=== PATIENT | male | born 1960 | race Caucasian/White ===

== ENCOUNTER 2020-08-29 21:20 | Emergency (ER) | payer MEDICAID, MEDICARE ==
[~2020-08-29] VITALS: Ht 182.9 cm; Wt 84.1 kg
[~2020-08-29 21:20] MED LIST: ASPI-1264 PO; ATOR40TA7 PO; BISO5TAB PO; HYDR-4353 PO; LISI-600 PO; LOP25T PO; PANT40TA39 PO
[2020-08-29 22:13] VITALS: BP 154/97
== END 2020-08-29 23:37 | disposition home or self-care (01) ==
LOC: ER 21:20
DX: U07.1 COVID-19 (principal); I10 Essential (primary) hypertension; I25.10 Atherosclerotic heart disease of native coronary artery without angina pectoris; G89.29 Other chronic pain; M54.9 Dorsalgia, unspecified; Z88.8 Allergy status to other drugs, medicaments and biological substances; Z79.82 Long term (current) use of aspirin; Z79.899 Other long term (current) drug therapy
CPT/HCPCS: 99282

== ENCOUNTER 2021-07-30 10:19 | Day surgery (SDC) | payer MEDICARE ==
[2021-07-29 12:21] LABS: BASOPHILS % (AUTO) 0.6 % (0-1); EOSINOPHILS # (AUTO) 0.1 X10'3 (0-0.9); EOSINOPHILS % (AUTO) 1.1 % (0-6); LYMPHOCYTES # (AUTO) 1.2 X10'3 (1.1-4.8); LYMPHOCYTES % (AUTO) 17.6 % (21-51); MEAN CORPUSCULAR HEMOGLOBIN 30.4 PG (27.0-31.0); MEAN CORPUSCULAR HGB CONC 33.6 g/dL (33.0-36.5); MEAN CORPUSCULAR VOLUME 90.3 FL (78-98); MEAN PLATELET VOLUME 8.3 FL (7.4-10.4); MONOCYTES # (AUTO) 0.6 X10'3 (0-0.9); MONOCYTES % (AUTO) 8.2 % (2-12); NEUTROPHILS # (AUTO) 5.1 X10'3 (1.8-7.7); NEUTROPHILS % (AUTO) 72.5 % (42-75); PRE OP HEMATOCRIT 37.9 % (42.0-52.0); PRE OP HEMOGLOBIN 12.7 g/dL (14.0-17.9); PRE OP PLATELET COUNT 284 X10'3 (140-440); RED BLOOD COUNT 4.19 X10'6 (4.70-6.10); RED CELL DISTRIBUTION WIDTH 12.9 % (11.5-14.5)
[2021-07-29 12:37] LABS: ALBUMIN 3.7 G/DL (3.4-5.0); ALBUMIN/GLOBULIN RATIO 0.8 (1.1-1.5); ALKALINE PHOSPHATASE 61 IU/L (46-116); BLOOD UREA NITROGEN 20 MG/DL (7-18); BUN/CREATININE RATIO 18.9 (5.4-32.0); CHLORIDE 105 MMOL/L (99-107); CREATININE 1.06 MG/DL (0.60-1.10); PRE OP ALT 30 U/L (30-65); PRE OP ANION GAP 8 (8-16); PRE OP AST 19 U/L (10-37); PRE OP GLUCOSE 117 MG/DL (70-104); PRE OP POTASSIUM 5.4 MMOL/L (3.4-5.1); PRE OP SODIUM 139 MMOL/L (135-145); TOTAL CARBON DIOXIDE 25.9 MMOL/L (24-32); TOTAL PROTEIN 8.1 G/DL (6.4-8.2); eGFR 71 ML/MIN
[2021-07-30] VITALS (8 sets, daily range): BP systolic 124–155; BP diastolic 71–93
[~2021-07-30] VITALS: Ht 182.9 cm; Wt 82.6 kg
[~2021-07-30 10:19] MED LIST changes: +DOCUMENT DATE & TIME OF BETA-BLOCKER PO ONE; +GABA-530 PO; -LISI-600 PO; -LOP25T PO; -PANT40TA39 PO; +TRAM50TA2 PO; +ceFAZolin 2gm in dextrose, iso 50 ML IV ONE; +famotidine 20mg tablet PO ONE; +metoclopramide 5 mg/ml inj IV ONE; +ringers solution, lacted 1,000 ML IV SCH; +vancomycin 1,500 MG in NS 300ml IV soln IV ONE
[2021-07-30 12:33] LABS: ALANINE AMINOTRANSFERASE 29 U/L (12-78); ALBUMIN 3.7 G/DL (3.4-5.0); ALBUMIN/GLOBULIN RATIO 0.9 (1.1-1.5); ALKALINE PHOSPHATASE 69 IU/L (46-116); ANION GAP 8 (8-16); ASPARTATE AMINO TRANSFERASE 18 U/L (10-37); BLOOD UREA NITROGEN 19 MG/DL (7-18); BUN/CREATININE RATIO 17.3 (5.4-32.0); CALCIUM 9.1 MG/DL (8.5-10.1); CHLORIDE 103 MMOL/L (99-107); GLUCOSE 110 MG/DL (70-104); POTASSIUM 4.9 MMOL/L (3.5-5.1); SODIUM 137 MMOL/L (135-145); TOTAL PROTEIN 7.8 G/DL (6.4-8.2); eGFR 68 ML/MIN
[2021-07-30] MEDS: morphine 4 MG/ML inj SYRINge IV PRN ×2 (14:05→16:45)
[2021-07-30] MEDS ORDERED: fentaNYL/PF 50MCG/1 ML 2ML syringe ONE (14:37)
[2021-07-30] MEDS ORDERED: midazolam 1 mg/ML 2ml injection ONE (14:38)
[2021-07-30] MEDS ORDERED: propofol inj 20 ML IV ONE (15:01)
[2021-07-30] MEDS ORDERED: ROPIVAcaine 0.5% (5mg/ml) 30ml vial ONE (15:01)
[2021-07-30] MEDS ORDERED: ondansetron/PF 4mg/2ml inj ONE (15:01)
[2021-07-30] MEDS ORDERED: dexamethasone sod phosphate 4mg/ml inj. ONE (15:01)
[2021-07-30] MEDS ORDERED: LIDOcaine 2% (20mg/ml) 5ml vial ONE (15:01)
[2021-07-30] MEDS ORDERED: LIDOcaine 1%/PF 5ML 10 MG/ML VIAL ONE (15:01)
[2021-07-30] MEDS ORDERED: ketorolac trometh. 30mg/ml inj. ONE (16:13)
[2021-07-30] MEDS ORDERED: morphine 10mg/ml inj. ONE (16:13)
--- NOTE | 2021-07-30 16:33 | NUR ---
ASSUME CARE PT AWAKE ALERT VSS NO DISTRESS C/O PAIN TO LEFT KNEE VESTA WRAP DRESSING CDI WITH VESTA BRACE IN PLACE ELEVATED AND ICED +CMS TO LEFT FOOT IV RIGHT AC 20G PATIENT CONT TO MONITOR Addendum: 07/30/21 at 1703 by Griselda Panda RN Amended: Links added.
[2021-07-30] MEDS ORDERED: morphine 2 MG/ML inj. syringe IV PRN (16:40)
[2021-07-30] MEDS ORDERED: hydrALAZINE 20mg/ml inj. IV PRN (16:40)
[2021-07-30] MEDS ORDERED: HYDROmorphone/PF 0.2 MG/ML SYRINGE IV PRN ×2 (16:40)
[2021-07-30] MEDS ORDERED: labetalol 20mg/4ml (5mg/ml) syringe IV PRN (16:40)
[2021-07-30] MEDS ORDERED: ringers solution, lacted 1,000 ML IV SCH (16:40)
[2021-07-30] MEDS ORDERED: morphine 4 MG/ML inj SYRINge IV PRN (16:40)
[2021-07-30] MEDS ORDERED: meperidine/PF 25mg/ml syringe IV PRN (16:40)
[2021-07-30] MEDS ORDERED: acetaminophen 1,000mg/100ml IV 100 ML IV PRN (16:40)
[2021-07-30] MEDS ORDERED: ondansetron/PF 4mg/2ml inj IV PRN (16:40)
[2021-07-30] MEDS ORDERED: proCHLORperazine 10 MG/2 ml inj IV PRN (16:40)
--- NOTE | 2021-07-30 17:27 | NUR ---
PT STATES FEELING BETTER VSS NO DISTRESS JENNA POS MEETS CRITERIA TO GO HOME DC INSTR GIVEN RIDE CALLED Addendum: 07/30/21 at 1728 by Griselda Pnada RN Amended: Links added.
== END 2021-07-30 17:43 | disposition home or self-care (01) ==
LOC: PAS 10:19
PROVIDERS: ATTEND Orthopaedic Surgery
DX: S82.142A Displaced bicondylar fracture of left tibia, initial encounter for closed fracture (principal); G89.18 Other acute postprocedural pain; I10 Essential (primary) hypertension; I25.2 Old myocardial infarction; I25.10 Atherosclerotic heart disease of native coronary artery without angina pectoris; Z20.822 Contact with and (suspected) exposure to COVID-19; Z87.891 Personal history of nicotine dependence; Z72.89 Other problems related to lifestyle; Z95.1 Presence of aortocoronary bypass graft; Z95.5 Presence of coronary angioplasty implant and graft; Z98.890 Other specified postprocedural states; Z79.899 Other long term (current) drug therapy; Z79.82 Long term (current) use of aspirin; Z88.8 Allergy status to other drugs, medicaments and biological substances; V19.9XXA Pedal cyclist (driver) (passenger) injured in unspecified traffic accident, initial encounter; Y93.55 Activity, bike riding; Y92.89 Other specified places as the place of occurrence of the external cause; Y99.8 Other external cause status
CPT/HCPCS: 27536; 36415; 64447; 73590; 76000; 76942; 80053; 82948; 85025; 86885; 86900; 86901; 87635; 93005; A6222; C1713; C9803; J0131; J1100; J1170; J1885; J2001; J2175; J2250; J2270; J2405; J2704; J2765; J3010; J3370; J7040; J7120; Z7506; Z7508; Z7512; A4618; A6449; A7000; J2795

== ENCOUNTER 2021-12-24 08:12 | Day surgery (SDC) | payer MEDICARE ==
[2021-12-19 11:13] LABS: BASOPHILS % (AUTO) 0.5 % (0-1); EOSINOPHILS # (AUTO) 0.1 X10'3 (0-0.9); EOSINOPHILS % (AUTO) 2.2 % (0-6); LYMPHOCYTES % (AUTO) 37.3 % (21-51); MEAN CORPUSCULAR HEMOGLOBIN 28.8 PG (27.0-31.0); MEAN CORPUSCULAR HGB CONC 32.9 g/dL (33.0-36.5); MEAN CORPUSCULAR VOLUME 87.6 FL (78-98); MEAN PLATELET VOLUME 9.1 FL (7.4-10.4); MONOCYTES # (AUTO) 0.5 X10'3 (0-0.9); MONOCYTES % (AUTO) 9.6 % (2-12); NEUTROPHILS # (AUTO) 2.7 X10'3 (1.8-7.7); NEUTROPHILS % (AUTO) 50.4 % (42-75); PRE OP HEMATOCRIT 43.2 % (42.0-52.0); PRE OP HEMOGLOBIN 14.2 g/dL (14.0-17.9); PRE OP PLATELET COUNT 212 X10'3 (140-440); RED BLOOD COUNT 4.93 X10'6 (4.70-6.10); RED CELL DISTRIBUTION WIDTH 14.6 % (11.5-14.5)
[2021-12-19 11:32] LABS: ALBUMIN 4.2 G/DL (3.4-5.0); ALBUMIN/GLOBULIN RATIO 1.1 (1.1-1.5); ALKALINE PHOSPHATASE 79 IU/L (46-116); BLOOD UREA NITROGEN 13 MG/DL (7-18); BUN/CREATININE RATIO 14.3 (5.4-32.0); CALCIUM 8.8 MG/DL (8.5-10.1); CHLORIDE 108 MMOL/L (99-107); CREATININE 0.91 MG/DL (0.60-1.10); PRE OP ALT 32 U/L (30-65); PRE OP ANION GAP 10 (8-16); PRE OP AST 24 U/L (10-37); PRE OP BILIRUB, TOTAL 0.8 MG/DL (0.0-1.0); PRE OP GLUCOSE 108 MG/DL (70-104); PRE OP POTASSIUM 4.9 MMOL/L (3.4-5.1); PRE OP SODIUM 144 MMOL/L (135-145); TOTAL CARBON DIOXIDE 26.4 MMOL/L (24-32); TOTAL PROTEIN 8.1 G/DL (6.4-8.2); eGFR 85 ML/MIN
[2021-12-24] VITALS (8 sets, daily range): BP systolic 132–160; BP diastolic 75–98
[~2021-12-24] VITALS: Ht 182.9 cm; Wt 83.9 kg
[2021-12-24] MEDS: acetaminophen 325mg tablet PO ONE ×2 (05:30→09:39)
[~2021-12-24 08:12] MED LIST changes: -ASPI-1264 PO; -GABA-530 PO; +GABA300C PO; +LISI20TA28 PO; -TRAM50TA2 PO; -ceFAZolin 2gm in dextrose, iso 50 ML IV ONE; +cefazolin/dext.iso 2gm/50ml IV ONE; +celeCOXIB 100mg capsule PO ONE; +gabapentin 300mg capsule PO ONE; +oxyCODONE SR 10mg (sust. release) tab -2 tabs (20mg) PO ONE; +tranexamic acid inj. 1,000 MG in 0.7% saline 100 ML PMX IV ONE
[2021-12-24] MEDS ORDERED: FENTANYL CITRATE/PF 50 MCG/1 ML VIAL ONE (12:00)
[2021-12-24] MEDS ORDERED: propofol inj 20 ML IV ONE (12:03)
[2021-12-24] MEDS ORDERED: LIDOcaine 2% (20mg/ml) 5ml vial ONE (12:03)
[2021-12-24] MEDS ORDERED: dexamethasone sod phosphate 4mg/ml inj. ONE (12:04)
[2021-12-24] MEDS ORDERED: ondansetron/PF 4mg/2ml inj ONE (12:04)
[2021-12-24] MEDS ORDERED: fentaNYL/PF 50MCG/1 ML 2ML syringe IV PRN ×2 (12:15)
[2021-12-24] MEDS ORDERED: hydrALAZINE 20mg/ml inj. IV PRN (12:15)
[2021-12-24] MEDS ORDERED: morphine 4 MG/ML inj SYRINge IV PRN (12:15)
[2021-12-24] MEDS ORDERED: labetalol 20mg/4ml (5mg/ml) syringe IV PRN (12:15)
[2021-12-24] MEDS ORDERED: ringers solution, lacted 1,000 ML IV SCH (12:15)
[2021-12-24] MEDS ORDERED: ondansetron/PF 4mg/2ml inj IV PRN (12:15)
[2021-12-24] MEDS ORDERED: morphine 2 MG/ML inj. syringe IV PRN (12:15)
--- NOTE | 2021-12-24 12:46 | NUR ---
Received from OR via , accompanied by Anesthesiologist DR CASH and report given by Anesthesiolgist.AWAKENS TO VOICE. VITALS STABLE. DRESSING DI. DMITRIY PAIN.
--- NOTE | 2021-12-24 14:06 | NUR ---
AWAKE AND ORIENTED. VITALS STABLE. DRESSING DI. DMITRIY PAIN. HOME WITH HIS AT THIS TIME.
== END 2021-12-24 14:06 | disposition home or self-care (01) ==
LOC: PAS 08:12
PROVIDERS: ATTEND Orthopaedic Surgery
DX: T84.84XA Pain due to internal orthopedic prosthetic devices, implants and grafts, initial encounter (principal); I25.10 Atherosclerotic heart disease of native coronary artery without angina pectoris; I10 Essential (primary) hypertension; I25.2 Old myocardial infarction; M19.90 Unspecified osteoarthritis, unspecified site; G89.18 Other acute postprocedural pain; G89.29 Other chronic pain; Z79.01 Long term (current) use of anticoagulants; Z20.822 Contact with and (suspected) exposure to COVID-19; Z79.82 Long term (current) use of aspirin; Z79.899 Other long term (current) drug therapy; Z95.1 Presence of aortocoronary bypass graft; Z88.8 Allergy status to other drugs, medicaments and biological substances; Z98.890 Other specified postprocedural states; Z87.891 Personal history of nicotine dependence; Y83.8 Other surgical procedures as the cause of abnormal reaction of the patient, or of later complication, without mention of misadventure at the time of the procedure; Y92.89 Other specified places as the place of occurrence of the external cause
CPT/HCPCS: 20680; 36415; 64447; 73590; 76000; 76942; 80053; 82948; 85025; J1100; J2405; J2704; J2765; J3010; J3370; J3490; J7030; J7040; J7120; U0003; U0005; Z7506; Z7508; Z7512; A4618; A6446; A6449; A7000